=== PATIENT | female | born 1985 | race American Indian/Alaskan Native ===

== ENCOUNTER 2016-10-01 12:04 | Emergency (ER) | payer BC ==
[2016-10-01 12:09] VITALS: TEMP 97.7; BMI 24.3
[2016-10-01] MEDS ORDERED: SODIUM CHLORIDE 1,000 ML IV ONE ×2 (13:07→14:27)
[2016-10-01 13:20] LABS: BASOPHIL 0.8 % (0-2.0); EOSINOPHIL 0.3 % (0-4.5); MCH 29.1 pg (25.7-33.7); MCHC 33.1 g/dl (32.0-36.0); MEAN PLT VOLUME 8.9 fl (7.5-11.1); NEUTROPHILS 54.7 % (42.8-82.8); PLATELET COUNT 145 K/MM3 (134-434); RDW 12.7 % (11.6-15.6); WHITE BLOOD COUNT 3.6 K/mm3 (4.0-10.0)
--- NOTE | 2016-10-01 13:22 | PDOC ---
History of Present Illness - General Chief Complaint: Pain, Acute Stated Complaint: RT ABD PAIN Time Seen by Provider: 10/01/16 12:24 History Source: Patient Exam Limitations: No Limitations - History of Present Illness Initial Comments: 10/01/16 13:17 Healthy 31-year-old female with no severe past medical history, LMP completed 2 days ago presents with abdominal pain. 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 No nausea or vomiting, no fevers or chills, she had influenza testing was negative and went home. Over the last 24-48 hours, her URI symptoms resolved but her abdominal cramping has persisted, intermittent and generalized with persistent decreased appetite. Since yesterday, the pain/cramping has localized to the periumbilical/right lower quadrant region, associated with 3-4 episodes of soft mucousy stool, still no fevers or chills. No nausea or vomiting. Presents for evaluation. No recent travel, no recent antibiotics, works in a hospital so positive sick contacts. No surgical history, normal menses. No history of ovarian cysts. No urinary complaints. Past History - Past Medical History Allergies/Adverse Reactions: Allergies Allergy/AdvReac Type Severity Reaction Status Date / Time No Known Allergies Allergy Verified 10/01/16 12:09 Home Medications: Ambulatory Orders NK [No Known Home Medication] 10/01/16 Other medical history: PT DENIES MEDICAL HX - Psycho/Social/Smoking Cessation Hx Suicidal Ideation: No Smoking History: Never smoked Review of Systems - Review of Systems Constitutional: No: Chills, Fever HEENTM: Yes: Nose Congestion. No: Throat Pain Respiratory: No: Cough, Shortness of Breath Cardiac (ROS): No: Chest Pain ABD/GI: Yes: Diarrhea, Nausea, Poor Appetite. No: Constipated, Vomiting : No: Burning, Dysuria, Frequency, Hematuria Integumentary: No: Rash All Other Systems: Reviewed and Negative *Physical Exam - Vital Signs Last Vital Signs Temp Pulse Resp BP Pulse Ox 97.7 F 98 H 18 114/76 98 10/01/16 12:06 10/01/16 12:06 10/01/16 12:06 10/01/16 12:06 10/01/16 12:06 - Physical Exam Comments: 10/01/16 13:21 Afebrile. Vital signs normal. GENERAL: The patient is awake, alert, and fully oriented, in no acute distress. HEAD: Normal with no signs of trauma. EYES: PERRL, EOMI, sclera anicteric, conjunctiva clear with no pallor. ENT: oropharynx clear without exudates. Moist mucous membranes. NECK: Normal range of motion, supple without lymphadenopathy, JVD, or masses. LUNGS: Breath sounds equal, clear to auscultation bilaterally. No wheeze/ crackles. HEART: Regular rate and rhythm, normal S1 and S2 without murmur or rub. ABDOMEN: Soft/nondistended. BS wnl. Tender in the periumbilical and right lower quadrant just medial to McBurney's point, positive localized guarding and rebound. No palpable masses. No hepatosplenomegaly. No CVAT. EXTREMITIES: Normal range of motion, no edema. 2+ distal pulses. No cords, erythema, or tenderness. NEUROLOGICAL: Cranial nerves II through XII grossly intact. Normal speech, normal gait. PSYCH: Normal mood, normal affect. SKIN: Warm, Dry, no rashes or lesions noted. ED Treatment Course - LABORATORY CBC & Chemistry Diagram: 10/01/16 13:15 10/01/16 13:15 Medical Decision Making - Medical Decision Making 10/01/16 13:22 31-year-old female with no significant past medical history presents with progressive abdominal complaints, initially generalized and now more localized to the right lower abdomen. Presentation is in the setting of more generalized viral complaints. Presentation could be concerning for appendicitis, also ileitis or colitis or mesenteric adenitis, seems less likely related. Labs, urinalysis, urine IV fluids, declines pain medication or nausea medication CT of the abdomen and pelvis with contrast Reassess 10/01/16 14:27 Urine negative, no evidence of infection. White count 3.6 with normal differential. Chemistries normal including lipase. Receiving IV fluids, awaiting CAT scan. 10/01/16 16:48 CTAP reveals normal appendix and suspicion for mesenteric adenitis. Given normal white count and manageable pain, will discharge with GI follow-up as needed and strict return precautions. *DC/Admit/Observation/Transfer Diagnosis at time of Disposition: Right lower quadrant abdominal pain, Mesenteric lymphadenitis - Discharge Dispostion Disposition: HOME Condition at time of disposition: Stable - Referrals Referrals: Zuhair Bernard DO [Staff Physician] - - Patient Instructions Printed Discharge Instructions: DI for Mesenteric Adenitis-Adult Additional Instructions: Activity as tolerated. Stay hydrated. Advance diet as tolerated, avoiding dairy , spicy or fatty foods, caffeine and alcohol. Tylenol as needed for pain. 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 Bernard) as needed regarding today's emergency department visit. Return to the emergency department for any new or concerning symptoms, particularly persistent or worsening pain, fevers or chills, bloody vomit or stool.
[2016-10-01 13:23] LABS: URINE APPEARANCE CLEAR; URINE BILIRUBIN NEGATIVE (NEGATIVE); URINE BLOOD 2+ (NEGATIVE); URINE COLOR DKYELLOW; URINE GLUCOSE (UA) NEGATIVE (NEGATIVE); URINE KETONE TRACE (NEGATIVE); URINE LEUK ESTERASE NEGATIVE (NEGATIVE); URINE NITRITE NEGATIVE (NEGATIVE); URINE PROTEIN NEGATIVE (NEGATIVE); URINE UROBILINOGEN 2.0 E.U/dl E.U./dl (0.2-1.0)
[2016-10-01 13:32] LABS: URINE MUCUS MANY; URINE RBC 19 /hpf (0-3); URINE WBC 2 /hpf (3-5)
[2016-10-01 13:37] LABS: ALBUMIN 3.1 g/dl (3.4-5.0); ANION GAP 10 (8-16); BILIRUBIN,TOTAL 0.6 mg/dL (0.2-1.0); CALCIUM 8.1 mg/dL (8.5-10.1); CO2 27 mmol/L (21-32); CREATININE 0.8 mg/dL (0.55-1.02); GLUCOSE,RANDOM 81 mg/dL (74-106); SGOT/AST 22 U/L (15-37); SGPT/ALT 22 U/L (12-78); TOT PROT 7.5 g/dl (6.4-8.2)
[2016-10-01 13:38] LABS: ALK PHOS 71 U/L (45-117)
[2016-10-01 13:40] LABS: INR 1.05 (0.82-1.09); PROTHROMBIN TIME (PATIENT) 11.6 SEC (9.98-11.88)
[2016-10-01 17:48] VITALS: BP 130/86; PULSE 71
== END 2016-10-01 17:05 | disposition home or self-care (01) ==
LOC: JER 12:04
PROC: 3E0337Z Introduction of Electrolytic and Water Balance Substance into Peripheral Vein, Percutaneous Approach (ICD-10-PCS; principal; 2016-10-01)
DX: R10.31 Right lower quadrant pain (principal); I88.0 Nonspecific mesenteric lymphadenitis
CPT/HCPCS: 36415; 74177-TC; 80053; 81003; 81015; 83690; 84703; 85025; 85610; 86850; 86900; 86901; 99283-25; Q9967